=== PATIENT | male | born 1985 | race Hispanic/Latino ===

== ENCOUNTER 2024-04-20 11:01 | Emergency (ER) | payer OTHER, MEDICARE ==
[~2024-04-20] VITALS: Ht 175.3 cm; Wt 132.1 kg
[2024-04-20] MEDS ORDERED: LISINOPRIL10 MG PO (11:25)
[2024-04-20] MEDS ORDERED: METFORMIN HCL500 M1 PO (11:25)
[2024-04-20] MEDS ORDERED: ROSUVASTATIN CA20 MG (11:25)
[2024-04-20] MEDS ORDERED: LITHOBID300 MG PO (11:25)
[2024-04-20] MEDS ORDERED: ABILIFY30 MG (11:25)
[2024-04-20] MEDS ORDERED: OLANZAPINE5 MG PO (11:25)
[2024-04-20] MEDS: SODIUM CHLORIDE 0.9% 1000ML 1,000 ML IV ONE (12:04)
[2024-04-20] MEDS: ONDANSETRON HCL INJ 2MG/ML 2ML 2 MG/ML VIAL IV STA (12:04)
[2024-04-20] MEDS: FAMOTIDINE 20 MG/2 ML VIAL IV STA (12:04)
[2024-04-20] MEDS ORDERED: IOPAMIDOL 370 MG/ML 100 ML INFUS..BTL INJ ONE (12:16)
[2024-04-20] MEDS ORDERED: AZITHROMYCIN500 MG PO (14:26)
[2024-04-20] MEDS ORDERED: ONDANSETRON ODT4 MG PO (14:26)
[2024-04-20 14:45] VITALS: PULSE 100; RESP 18; TEMP 99.9; O2SAT 96
== END 2024-04-20 14:42 | disposition home or self-care (01) ==
LOC: FSED 11:08
DX: R11.2 Nausea with vomiting, unspecified (principal); K52.9 Noninfective gastroenteritis and colitis, unspecified; N20.0 Calculus of kidney; K76.0 Fatty (change of) liver, not elsewhere classified
CPT/HCPCS: 74177; 80048; 80076; 80307; 81003; 85025; 96374; 96375; 99284; J2405; J7030; Q9967